=== PATIENT | male | born 1990 | race Caucasian/White ===

== ENCOUNTER 2019-06-15 15:44 | Inpatient (IN) | payer MEDICAID ==
[~2019-06-15] VITALS: Ht 170.2 cm; Wt 123.0 kg
[~2019-06-15 15:44] MED LIST: ASEN10TA8 SL; VYVANCE
[2019-06-15] MEDS ORDERED: HALOPERIDOL 5 MG TABLET PO PRN (20:00)
[2019-06-15] MEDS ORDERED: ZOLPIDEM TARTRATE 10 MG TABLET PO PRN (20:00)
[2019-06-15 20:50] VITALS: BP 145/80
[2019-06-16 03:20] VITALS: BP 151/93
[2019-06-16] MEDS: LORazepam 2 MG TABLET PO PRN (03:30)
[2019-06-16 05:27] VITALS: BP 123/88
[2019-06-16 07:14] LABS: EOSINOPHILS % (AUTO) 13.1 % (1.0-6.0); HEMATOCRIT 44.3 % (41-53); HEMOGLOBIN 14.8 g/dL (13.5-17.5); LYMPHOCYTES # (AUTO) 1.8 K/uL (1.0-4.8); MEAN CORPUSCULAR HEMOGLOBIN 30.1 pg (26.0-34.0); MEAN CORPUSCULAR HGB CONC 33.4 G/dL (31.0-37.0); MEAN CORPUSCULAR VOLUME 90 fL (80-100); MONOCYTES # (AUTO) 0.7 K/uL (0.1-1.0); MONOCYTES % (AUTO) 6.9 % (2.0-9.0); NEUTROPHILS # (AUTO) 6.6 K/uL (1.8-7.7); PLATELET COUNT (AUTO) 334 K/uL (150-450); RED BLOOD CELL COUNT(AUTO) 4.92 MIL/uL (4.50-5.90); RED CELL DISTRIBUTION WIDTH 13.6 % (11.5-14.5)
[2019-06-16] MEDS ORDERED: MAGNESIUM HYDROXIDE SUSPENSION 30 ML UDCUP PO PRN (07:45)
[2019-06-16] MEDS ORDERED: MAG HYDROX/AL HYDROX/SIMETH ES 30 ML SUSPENSION UDCUP PO PRN (07:45)
[2019-06-16] MEDS ORDERED: NICOTINE 14 MG/24 HOUR PATCH TD PRN (07:45)
[2019-06-16] MEDS ORDERED: ONDANSETRON HCL 4 MG TABLET PO PRN (07:45)
[2019-06-16] MEDS ORDERED: PETROLATUM,WHITE 28 GM JELLY TP PRN (07:45)
[2019-06-16] MEDS ORDERED: CloNIDine HCL 0.1 MG TABLET PO PRN (07:45)
[2019-06-16] MEDS ORDERED: LOPERAMIDE HCL 2 MG CAPSULE PO PRN (07:45)
[2019-06-16] MEDS ORDERED: DOCUSATE SODIUM 100 MG CAPSULE PO PRN (07:45)
[2019-06-16 07:59] LABS: HEMOGLOBIN A1C 5.1 % (4.5-6.2)
[2019-06-16 08:00] VITALS: BP 141/86
[2019-06-16 08:41] LABS: ALANINE AMINOTRANSFERASE 39 U/L (12-78); ALBUMIN 3.5 g/dL (3.4-5.0); ALKALINE PHOSPHATASE 86 U/L (46-116); ANION GAP 10 mmol/L (8-16); ASPARTATE AMINOTRANSFERASE 18 U/L (15-37); BILIRUBIN,TOTAL 0.3 mg/dL (0.1-1.0); CALCIUM, TOTAL 8.6 mg/dL (8.8-10.5); CARBON DIOXIDE 25 mmol/L (22-29); CHLORIDE 106 mmol/L (98-107); CHOL/HDL RATIO 3.7 (4.2-7.3); CHOLESTEROL 111 mg/dL (131-200); CREATININE 1.18 mg/dL (0.60-1.30); GLOMERULAR FILTR. RATE CALC > 60 mL/min (>60); GLUCOSE,RANDOM 83 mg/dL (70-110); HDL CHOLESTEROL 30 mg/dL (40-60); LDL CHOL (CALC.) 56 mg/dL (0-130); POTASSIUM 4.5 mmol/L (3.5-5.1); SODIUM SERUM 141 mmol/L (136-145); TOTAL PROTEIN, SERUM 6.8 g/dL (6.4-8.2); TRIGLYCERIDES 127 mg/dL (15-150); UREA NITROGEN, BLOOD 18 mg/dL (7-18)
[2019-06-16 09:23] LABS: FREE T4 (FREE THYROXINE) 1.04 ng/dL (0.76-1.46); THYROID STIMULATING HORMONE 2.61 uIU/mL (0.36-3.74)
[2019-06-16] MEDS: ACETAMINOPHEN 325 MG TABLET PO PRN (10:31)
[2019-06-16] MEDS: IBUPROFEN 400 MG TABLET PO PRN (11:31)
[2019-06-16] MEDS ORDERED: LISD30CA PO (12:21)
[2019-06-16 16:00] VITALS: BP 140/73
[2019-06-16] MEDS: ASENAPINE 10 MG SUBLINGUAL TABLET SL SCH (20:13)
[2019-06-16] MEDS: LITHIUM CARBONATE 600 MG CAPSULE PO SCH (20:13)
[2019-06-17 01:17] VITALS: BP 123/90
[2019-06-17 08:02] VITALS: BP 153/90
[2019-06-17] MEDS: ACETAMINOPHEN 325 MG TABLET PO PRN ×2 (08:15→17:00)
[2019-06-17 10:16] VITALS: BP 145/70
[2019-06-17] MEDS: IBUPROFEN 400 MG TABLET PO PRN (10:18)
[2019-06-17 11:11] LABS: GLUCOMETER DEV NAME(LOC) BV2S.; GLUCOSE,POINT OF CARE 118 MG/DL (70-110)
[2019-06-17 13:09] VITALS: BP 136/86
[2019-06-17 16:06] VITALS: BP_SYST 97
[2019-06-17] MEDS: ASENAPINE 10 MG SUBLINGUAL TABLET SL SCH (20:09)
[2019-06-17] MEDS: LITHIUM CARBONATE 600 MG CAPSULE PO SCH (20:09)
[2019-06-18 00:25] VITALS: BP 102/63
[2019-06-18 08:30] VITALS: BP 110/68
[2019-06-18] MEDS: IBUPROFEN 400 MG TABLET PO PRN (08:31)
[2019-06-18 08:49] VITALS: BP 146/80
[2019-06-18 12:17] VITALS: BP 137/82
[2019-06-18 16:09] VITALS: BP 148/91
[2019-06-18] MEDS: ACETAMINOPHEN 325 MG TABLET PO PRN (16:34)
[2019-06-18] MEDS: AmLODIPine BESYLATE 10 MG TABLET PO SCH (17:41)
[2019-06-18] MEDS: ASENAPINE 10 MG SUBLINGUAL TABLET SL SCH (20:09)
[2019-06-18] MEDS: LITHIUM CARBONATE 600 MG CAPSULE PO SCH (20:09)
[2019-06-19 00:34] VITALS: BP 119/71
[2019-06-19 03:05] VITALS: BP 122/74
[2019-06-19] MEDS: IBUPROFEN 400 MG TABLET PO PRN (03:07)
[2019-06-19 08:11] VITALS: BP 139/76
[2019-06-19] MEDS: AmLODIPine BESYLATE 10 MG TABLET PO SCH (08:20)
[2019-06-19] MEDS: ACETAMINOPHEN 325 MG TABLET PO PRN (08:57)
[2019-06-19] MEDS: ALBUTEROL SULFATE HFA 90 MCG/PUFF 8 GM INHALER IH PRN (12:33)
[2019-06-19] MEDS: LORazepam 2 MG TABLET PO PRN (16:18)
[2019-06-19 19:03] VITALS: BP 135/76
[2019-06-19] MEDS: LITHIUM CARBONATE 600 MG CAPSULE PO SCH (20:06)
[2019-06-19] MEDS: ASENAPINE 10 MG SUBLINGUAL TABLET SL SCH (20:06)
[2019-06-20 00:15] VITALS: BP 135/77
[2019-06-20] MEDS: ALBUTEROL SULFATE HFA 90 MCG/PUFF 8 GM INHALER IH PRN ×3 (00:17→17:55)
[2019-06-20] MEDS: AmLODIPine BESYLATE 10 MG TABLET PO SCH (08:21)
[2019-06-20 08:29] VITALS: BP 143/87
[2019-06-20] MEDS ORDERED: ASENAPINE 5 MG SUBLINGUAL TABLET SL SCH (09:00)
[2019-06-20] MEDS: LORazepam 2 MG TABLET PO PRN (10:56)
[2019-06-20] MEDS: IBUPROFEN 400 MG TABLET PO PRN (14:59)
[2019-06-20 16:51] VITALS: BP 142/83
[2019-06-20] MEDS: LITHIUM CARBONATE 600 MG CAPSULE PO SCH (20:03)
[2019-06-20] MEDS: GuaiFENesin/D-METHORPHAN [SUGAR-FREE] 200-20MG/10 ML SYRUP UDCUP PO PRN (20:25)
[2019-06-20] MEDS ORDERED: ASENAPINE 10 MG SUBLINGUAL TABLET SL SCH (21:00)
[2019-06-21] MEDS: ALBUTEROL SULFATE HFA 90 MCG/PUFF 8 GM INHALER IH PRN ×3 (00:14→12:09)
[2019-06-21] MEDS: ACETAMINOPHEN 325 MG TABLET PO PRN (00:14)
[2019-06-21 00:18] VITALS: BP 131/78
[2019-06-21] MEDS: GuaiFENesin/D-METHORPHAN [SUGAR-FREE] 200-20MG/10 ML SYRUP UDCUP PO PRN ×2 (03:57→18:54)
[2019-06-21 06:05] VITALS: BP 128/82
[2019-06-21] MEDS: IBUPROFEN 400 MG TABLET PO PRN (06:08)
[2019-06-21] MEDS: AmLODIPine BESYLATE 10 MG TABLET PO SCH (08:06)
[2019-06-21] MEDS: LORazepam 2 MG TABLET PO PRN (08:06)
[2019-06-21 08:16] VITALS: BP 151/80
[2019-06-21] MEDS ORDERED: AMLO10TA7 PO (08:20)
[2019-06-21] MEDS ORDERED: LITH600 PO ×2 (08:20→10:08)
[2019-06-21] MEDS ORDERED: ALBU8HFA (08:20)
[2019-06-21] MEDS ORDERED: ASEN5TAB6 SL (08:20)
[2019-06-21 09:16] VITALS: BP 103/70
[2019-06-21] MEDS ORDERED: ASEN10TA8 SL (10:08)
[2019-06-21 16:12] VITALS: BP 140/78
== END 2019-06-21 20:05 | disposition home or self-care (01) | DRG 750 ==
LOC: B2S 20:08
DX: F25.1 Schizoaffective disorder, depressive type (principal); R45.851 Suicidal ideations; F32.9 Major depressive disorder, single episode, unspecified; F19.10 Other psychoactive substance abuse, uncomplicated; F41.9 Anxiety disorder, unspecified; R03.0 Elevated blood-pressure reading, without diagnosis of hypertension; Z88.8 Allergy status to other drugs, medicaments and biological substances; Z71.51 Drug abuse counseling and surveillance of drug abuser
CPT/HCPCS: 83036; 84439; 84443; 87081; J3535